=== PATIENT | male | born 1995 | race Caucasian/White ===

== ENCOUNTER → 2017-12-04 | Outpatient (CLI) | payer BC ==
--- NOTE | 2017-12-09 14:04 | RADIOLOGY REPORT ---
NAME: OMARI DAMON [facility] REC#: [id number] PT STATUS: REG CLI : 1995 PHYSICIAN: TOMER SHEPHERD MD ADMIT DATE: 12/04/17/RAD CORRECTED Signed Date of Exam:12/04/17 PELVIS WITH LEFT HIP 2-3 VIEWS PATIENT HISTORY: LEFT GROIN AND HIP PAIN. TECHNIQUE: AP view of the pelvis. Three views of the left hip. COMPARISON: None. FINDINGS: No acute fracture or dislocation is seen in the pelvis or the left hip. Alignment appears normal. The femoral heads are well seated in the acetabula bilaterally. The joint spaces are preserved. Minimal calcification at the left lesser trochanter may represent mild enthesopathy. IMPRESSION: No acute osseous abnormality is seen in the pelvis or the left hip. Mild enthesopathy at the left iliopsoas insertion. Dictated by: Dictated on workstation # [id number] Dict: 12/04/17 1655 Trans: 12/04/17 1713 [id number] Interpreted by: DOLORES BELL MD Electronically signed by: DOLORES BELL MD 12/04/17 1713 MTDD
== END ==
LOC: RAD 15:56
PROVIDERS: ATTEND Orthopaedic Surgery
DX: M76.892 Other specified enthesopathies of left lower limb, excluding foot (principal); R10.32 Left lower quadrant pain